=== PATIENT | female | born 1980 | race Caucasian/White ===

== ENCOUNTER 2018-11-15 14:37 | Emergency (ER) | payer BC, SELFPAY ==
[2018-11-15 14:50] VITALS: BP 113/75; PULSE 66; RESP 12; TEMP 36.6; O2SAT 100
[2018-11-15 14:55] VITALS: PULSE 66
--- NOTE | 2018-11-15 15:10 | DI.RAD.S_ITS ---
PROCEDURE: XR ANKLE LT MIN 3V INDICATIONS: Pain to left ankle TECHNIQUE: 3 views of the ankle were acquired. COMPARISON: None. FINDINGS: Bones: No fractures or dislocations. Ankle mortise is normally aligned. No suspicious bony lesions. Soft tissues: No tibiotalar joint effusion. Achilles tendon appears normal. IMPRESSION: No trauma found. If there is clinical concern for presence of hidden fracture follow-up by delayed plain films or advanced imaging, such as CT or MRI, could be obtained. The normal superimposition of multiple osseous margins in this area reduces the study's ability to detect nondisplaced fractures. Dictated by: Wilfredo Terry M.D. on 11/15/2018 at 15:55 Approved by: Wilfredo Terry M.D. on 11/15/2018 at 15:56
--- NOTE | 2018-11-15 16:16 | ED_ITS ---
HPI - Extremity Injury (Lower) <ANYA Nelson - Last Filed: 11/15/18 21:34> General Chief Complaint: Extremity Injury, Lower Stated Complaint: FOOT/ANKLE PAIN LEFT Time Seen by Provider: 11/15/18 14:39 Source: patient Mode of arrival: ambulatory Limitations: no limitations History of Present Illness HPI Narrative: 38-year-old female with history of PTSD that is a everyday smoker here for complaint of pain into her left ankle since yesterday. She states that she was at her work where she stands frequently when the pain started. She denies any trauma to the ankle. She denies stepping wrong. Increased pain with weight-bearing and movement of the left ankle. Pain is limited to the left ankle. She denies any other concerns or complaints at this timeframe. MD complaint: ankle injury Related Data Home Medications Medication Instructions Recorded Confirmed gabapentin 100 mg PO TID 11/15/18 11/15/18 Allergies Allergy/AdvReac Type Severity Reaction Status Date / Time nortriptyline [NORTRIPTYLINE] Allergy Unknown Unverified 01/27/18 12:20 prednisone [PREDNISONE] Allergy Unknown Unverified 01/27/18 12:20 Review of Systems <ANYA Nelson - Last Filed: 11/15/18 21:34> Constitutional Denies chills, Denies fever(s), Denies lethargy and Denies weakness Eyes Denies change in vision, Denies eye discharge, Denies irritation and Denies loss of vision ENT Ears, Nose, Mouth, and Throat: Denies change in voice, Denies neck pain and Denies sore throat Cardiovascular Denies chest pain, Denies irregular heart rhythm, Denies lightheadedness, Denies palpitations, Denies dyspnea, Denies dyspnea on exertion and Denies orthopnea Respiratory Denies cough, Denies dyspnea, Denies dyspnea on exertion and Denies wheezing Gastrointestinal Gastrointestinal: Denies abdominal pain, Denies change in bowel habits, Denies diarrhea, Denies nausea and Denies vomiting Genitourinary Denies hematuria, Denies flank pain, Denies urinary incontinence and Denies urinary urgency Musculoskeletal Denies neck pain Comments: Left ankle pain Integumentary/Breasts Denies pruritus, Denies erythema, Denies rash and Denies wounds Neurologic Denies confusion, Denies loss of vision and Denies weakness Psychiatric Denies anxiety, Denies confusion, Denies depression, Denies homicidal ideation and Denies suicidal ideation Endocrine Denies palpitations Hematologic/Lymphatic Denies easy bruising Allergic/Immunologic Denies wheezing PFSH <ANYA Nelson - Last Filed: 11/15/18 21:34> Social History Smoking Status: Current every day smoker Exam <ANYA eNlson - Last Filed: 11/15/18 21:34> Initial Vital Signs Initial Vital Signs: Vital Signs Temperature 97.8 F 11/15/18 14:50 Pulse Rate 66 11/15/18 14:50 Respiratory Rate 12 11/15/18 14:50 Blood Pressure 113/75 11/15/18 14:50 Pulse Oximetry 100 11/15/18 14:50 Const General: cooperative and well developed Nutritional Appearance: well nourished Orientation: alert, awake, oriented x3 and not confused HENMT Mouth: oral mucosae normal and moist mucous membranes Eyes Conjunctivae: conjunctivae normal Sclera: sclerae normal Pupils: PERRL EOM: EOM intact bilaterally Resp Effort & Inspection: normal respiratory effort, able to speak in complete sentences, no respiratory distress and no use of accessory muscles Auscultation: clear to auscultation bilaterally, no rales, no rhonchi and no wheezes Cardio Rate: regular rate Rhythm: regular rhythm Heart Sounds: no click, no gallops, no murmurs and no rubs Pulses: normal peripheral pulses Skin General: no rashes or lesions noted, No jaundice and No petechiae Neuro General: alert, oriented x3, gait normal and no focal motor deficits Speech: speech normal Extrem Other: Left ankle with no signs of trauma. No ecchymosis no swelling no erythema. Full range of motion. Distal range of motion is intact. Distal sensation is intact distal pulses are intact <Quita Cedeño DO - Last Filed: 11/24/18 16:36> Initial Vital Signs Initial Vital Signs: Vital Signs Temperature 97.8 F 11/15/18 14:50 Pulse Rate 66 11/15/18 14:50 Respiratory Rate 12 11/15/18 14:50 Blood Pressure 113/75 11/15/18 14:50 Pulse Oximetry 100 11/15/18 14:50 Course <ANYA Nelson - Last Filed: 11/15/18 21:34> Orders Ordered: ED Orders 11/15/18 15:10 XR ankle LT min 3V Stat Vital Signs - 8 hr 11/15/18 14:50 11/15/18 14:55 11/15/18 16:30 Temperature 97.8 F Pulse Rate 66 60 Pulse Rate [Left Dorsalis Pedis] 66 Respiratory Rate 12 16 Blood Pressure 113/75 Blood Pressure [Left Arm] 106/62 Pulse Oximetry 100 100 <Quita Cedeño DO - Last Filed: 11/24/18 16:36> Orders Ordered: ED Orders 11/15/18 15:10 XR ankle LT min 3V Stat Vital Signs - 8 hr 11/15/18 14:50 11/15/18 14:55 11/15/18 16:30 Temperature 97.8 F Pulse Rate 66 60 Pulse Rate [Left Dorsalis Pedis] 66 Respiratory Rate 12 16 Blood Pressure 113/75 Blood Pressure [Left Arm] 106/62 Pulse Oximetry 100 100 MDM - Extremity Injury (Lower) <ANYA Nelson - Last Filed: 11/15/18 21:34> MDM Narrative Medical decision making narrative: X-ray the left ankle was obtained was negative for any acute findings. Signs and symptoms presents as sprain to the left ankle. She is placed and a splint and crutches for nonweightbearing. Rest area. [id number] ibuprofen as needed for discomfort. Follow up with primary care provider who re-evaluation. For any worsening symptoms return emergency room. Discharge Plan Departure Patient Disposition: Home Clinical Impression: Left ankle sprain Qualifiers: Encounter type: initial encounter Involved ligament of ankle: unspecified ligament Qualified Code(s): S93.402A - Sprain of unspecified ligament of left ankle, initial encounter Discharge Date/Time: 11/15/18 16:54 Interventions: ED Discharge Assessment Last Done: 11/15/18 16:46 Instructions: DI for Ankle Sprain Activity Restrictions/Additional Instructions: [address] [place] [id number] XRay Report Signed Patient: Angella Villalobos#: [id number] : 1980Acct:[id number] Age/Sex: 38 / FDate of Service: 11/15/18 Loc: ED Accession Number: [id number] Procedure: XR ankle LT min 3V Ordering Provider: Henrry Fam PROCEDURE: XR ANKLE LT MIN 3V INDICATIONS: Pain to left ankle TECHNIQUE: 3 views of the ankle were acquired. COMPARISON: None. FINDINGS: Bones: No fractures or dislocations. Ankle mortise is normally aligned. No suspicious bony lesions. Soft tissues: No tibiotalar joint effusion. Achilles tendon appears normal. IMPRESSION: No trauma found. If there is clinical concern for presence of hidden fracture follow-up by delayed plain films or advanced imaging, such as CT or MRI, could be obtained. The normal superimposition of multiple osseous margins in this area reduces the study's ability to detect nondisplaced fractures. Dictated by: Wilfredo Terry M.D. on 11/15/2018 at 15:55 Approved by: Wilferdo Terry M.D. on 11/15/2018 at 15:56 Prescriptions: No Action gabapentin 100 mg capsule 100 mg PO TID RF: 0 Referrals: [facility] [Provider Group] Stand Alone Forms: Work Release Note <Quita Cedeño DO - Last Filed: 11/24/18 16:36> Cosign ED Attending Cosignature Attestation: I was immediately available in the department for consultation. This documentation has been reviewed and I agree with assessment and plan. Supervised by Quita Cedeño DO
[2018-11-15 16:30] VITALS: BP 106/62; PULSE 60; RESP 16; O2SAT 100
== END 2018-11-15 16:54 | disposition home or self-care (01) ==
PROVIDERS: Emergency Provider Nurse Practitioner Family
DX: S93.402A Sprain of unspecified ligament of left ankle, initial encounter (principal)
CPT/HCPCS: 73610; 99282; 99283

== ENCOUNTER 2018-12-20 16:55 | Emergency (ER) | payer BC, SELFPAY ==
[2018-12-20 17:06] VITALS: BP 130/77; PULSE 95; RESP 18; TEMP 37.9; O2SAT 97; BMI 29.9
--- NOTE | 2018-12-20 18:31 | ED.URI ---
HPI - URI/Sore Throat General Chief Complaint: Upper Respiratory Symptoms Stated Complaint: states has the flu and asthma Time Seen by Provider: 12/20/18 18:25 Source: patient and family Mode of arrival: ambulatory Limitations: no limitations History of Present Illness HPI Narrative: 38-year-old female smoker with history of asthma presents with runny nose, sore throat, headache and dry hacking cough for the past day or 2. Her significant other has similar symptoms. She has had no nausea or vomiting and denies any diarrhea or abdominal pain. She did not get her flu shot this year. MD Complaint: fever, cough and sore throat Onset (ago): day(s) Duration: constant Severity: mild Relieving factors: nothing Exacerbating factors: nothing Description of mucous: clear Able to tolerate fluids by mouth: Yes Context: sick contacts Treatments prior to arrival: acetaminophen and ibuprofen Related Data Home Medications Medication Instructions Recorded Confirmed gabapentin 100 mg PO TID 11/15/18 12/20/18 Previous Rx's Medication Instructions Recorded albuterol sulfate 2 puff INHALATION Q4H PRN #1 each 12/20/18 ondansetron 4 mg PO TID-QID PRN #10 tab 12/20/18 oseltamivir [Tamiflu] 75 mg PO BID 5 Days #10 cap 12/20/18 Allergies Allergy/AdvReac Type Severity Reaction Status Date / Time nortriptyline [NORTRIPTYLINE] Allergy Unknown Verified 12/20/18 17:06 prednisone [PREDNISONE] Allergy Unknown Verified 12/20/18 17:06 Review of Systems Constitutional Reports chills, Reports fever(s), Reports headache(s), Denies lethargy and Denies weakness Eyes Denies change in vision, Denies eye discharge, Denies irritation and Denies loss of vision ENT Ears, Nose, Mouth, and Throat: Denies change in voice, Reports headache(s), Denies neck pain and Reports sore throat Cardiovascular Denies chest pain, Denies irregular heart rhythm, Denies lightheadedness, Denies palpitations, Denies dyspnea, Denies dyspnea on exertion and Denies orthopnea Respiratory Reports cough, Denies dyspnea, Denies dyspnea on exertion and Denies wheezing Gastrointestinal Gastrointestinal: Denies abdominal pain, Denies change in bowel habits, Denies diarrhea, Denies nausea and Denies vomiting Genitourinary Denies hematuria, Denies flank pain, Denies urinary incontinence and Denies urinary urgency Musculoskeletal Denies neck pain Integumentary/Breasts Denies pruritus, Denies erythema, Denies rash and Denies wounds Neurologic Denies confusion, Reports headache(s), Denies loss of vision and Denies weakness Psychiatric Denies anxiety, Denies confusion, Denies depression, Denies homicidal ideation and Denies suicidal ideation Endocrine Denies palpitations Hematologic/Lymphatic Denies easy bruising Allergic/Immunologic Denies wheezing PFSH Social History Smoking Status: Current every day smoker Social History Smoking Status: Current every day smoker Exam Narrative Exam Narrative: GENERAL: 38-year-old female appears stated age, clearly not feeling well, wearing a mask HEAD: Atraumatic. Normocephalic. No temporal or scalp tenderness. EYES: Pupils equal round and reactive. Extraocular motions intact. No scleral icterus. No injection or drainage. ENT: Nose without bleeding, purulent drainage or septal hematoma. Throat without erythema, tonsillar hypertrophy or exudate. Uvula midline. Airway patent. NECK: Trachea midline. No JVD or lymphadenopathy. Supple, nontender, no meningeal signs. CARDIOVASCULAR: Regular rate and rhythm without murmurs, gallops, or rubs. RESPIRATORY: Clear to auscultation. Breath sounds equal bilaterally. No wheezes, rales, or rhonchi. GASTROINTESTINAL: Abdomen soft, non-tender, nondistended. No hepato-splenomegaly, or palpable masses. No guarding. EXTREMITIES: No clubbing, cyanosis, or edema. No joint tenderness, effusion, or edema noted. BACK: Nontender without deformity or crepitance. No flank tenderness. NEURO: AOx3. SKIN: No rash or erythema. Initial Vital Signs Initial Vital Signs: Vital Signs Temperature 100.3 F H 12/20/18 17:06 Pulse Rate 95 H 12/20/18 17:06 Respiratory Rate 18 12/20/18 17:06 Blood Pressure 130/77 12/20/18 17:06 Pulse Oximetry 97 12/20/18 17:06 Course Orders Ordered: ED Orders 12/20/18 17:10 Influenza A and B by PCR Rapid Stat Vital Signs - 8 hr 12/20/18 18:45 Pulse Rate 77 Respiratory Rate 15 Blood Pressure 133/67 Pulse Oximetry 100 MDM - URI/Sore Throat Lab Data Lab Results 12/20/18 Range/Units 17:10 Influenza A & B (PCR) Positive, type a A (Negative) Discharge Plan Departure Patient Disposition: Home Clinical Impression: Influenza Discharge Date/Time: 12/20/18 18:46 Interventions: ED Discharge Assessment Last Done: 12/20/18 18:45 Instructions: DI for Influenza -- Adult Activity Restrictions/Additional Instructions: *You have been diagnosed with [ influenza ] *What to do: *Take medications as directed. Prescriptions have been electronically transmitted to the [facility] at your request *Follow up with your primary care provider in 2-3 days, call for an appointment. Let them know you were seen in the Emergency Department and that we ask that you be seen in follow up *Return to ER if you should have any new, worsening or concerning symptoms Prescriptions: New oseltamivir [Tamiflu] 75 mg capsule 75 mg PO BID 5 Days Qty: 10 RF: 0 ondansetron 4 mg tablet,disintegrating 4 mg PO TID-QID PRN (Reason: nausea and vomiting) Qty: 10 RF: 0 albuterol sulfate 90 mcg/actuation aerosol powdr breath activated 2 puff INHALATION Q4H PRN (Reason: shortness of breath or wheezing) Qty: 1 RF: 0 No Action gabapentin 100 mg capsule 100 mg PO TID RF: 0
[2018-12-20 18:45] VITALS: BP 133/67; PULSE 77; RESP 15; O2SAT 100
== END 2018-12-20 18:46 | disposition home or self-care (01) ==
PROVIDERS: Emergency Medicine; Emergency Provider Emergency Medicine
DX: J11.1 Influenza due to unidentified influenza virus with other respiratory manifestations (principal)
CPT/HCPCS: 87400; 99282; 99283

== ENCOUNTER 2019-01-19 20:40 | Emergency (ER) | payer BC, SELFPAY ==
[2019-01-19 20:44] VITALS: BP 118/66; PULSE 89; RESP 16; TEMP 37.1; O2SAT 99; BMI 32.0
--- NOTE | 2019-01-19 21:55 | DI.RAD.S_ITS ---
PROCEDURE: XR HIP W PEL IF DONE LT 2V INDICATIONS: fall with left hip pain TECHNIQUE: AP pelvis with lateral view(s) of the left hip(s). COMPARISON: None. FINDINGS: Bones: No fractures or dislocations. Pelvic ring appears intact. No suspicious bony lesions. Soft tissues: The visualized bowel gas pattern is normal. No suspicious soft tissue calcifications. IMPRESSION: No fracture or dislocation. No significant discrepancy with the ER preliminary interpretation. Dictated by: Melodie Damian M.D. on 01/20/2019 at 8:33 Approved by: Melodie Damian M.D. on 01/20/2019 at 8:33
[2019-01-19] MEDS: KETOROLAC 60 MG/2 ML VIAL IM (22:10)
[2019-01-19] MEDS: HYDROCODONE/ACET 5/325 PREPACK 1 BOTTLE MISC (22:57)
[2019-01-19 23:22] VITALS: BP 97/65; PULSE 70; RESP 14; O2SAT 100
--- NOTE | 2019-01-20 04:17 | ED_ITS ---
HPI - Extremity Injury (Lower) General Chief Complaint: Extremity Injury, Lower Stated Complaint: LT SIDE HIP TO FOOT PAIN Time Seen by Provider: 01/19/19 20:41 Source: patient and family Mode of arrival: ambulatory Limitations: no limitations History of Present Illness HPI Narrative: 38-year-old female daily smoker with history of asthma and chronic back pain presents with a chief complaint of left hip pain and low back pain that radiates down her leg. She suffered a fall few weeks ago and states that her pain just isn't improving. She denies any numbness, tingling or weakness. She denies any trouble controlling bowel or bladder. She denies any weakness of her lower extremities nor any footdrop. She does have a history of low back pain and states that on occasion she will take some gabapentin that had been prescribed to her but that does not seem to be helping current symptoms MD complaint: hip injury and fall Onset (ago): day(s) Type of Injury: blunt Place: home Severity: mild Relieving factors: nothing Exacerbating factors: weight bearing and movement Context: fall and direct blow Associated symptoms: tingling and able to partially bear weight Related Data Home Medications Medication Instructions Recorded Confirmed gabapentin 100 mg PO TID 11/15/18 12/20/18 Previous Rx's Medication Instructions Recorded albuterol sulfate 2 puff INHALATION Q4H PRN #1 each 12/20/18 ondansetron 4 mg PO TID-QID PRN #10 tab 12/20/18 cyclobenzaprine 10 mg PO TID PRN #14 tab 01/19/19 ketorolac 10 mg PO Q6H PRN #14 tab 01/19/19 Allergies Allergy/AdvReac Type Severity Reaction Status Date / Time nortriptyline [NORTRIPTYLINE] Allergy Unknown Verified 01/19/19 20:44 prednisone [PREDNISONE] Allergy Unknown Verified 01/19/19 20:44 Review of Systems Constitutional Denies chills, Denies fever(s), Denies lethargy and Denies weakness Eyes Denies change in vision, Denies eye discharge, Denies irritation and Denies loss of vision ENT Ears, Nose, Mouth, and Throat: Denies change in voice, Denies neck pain and Denies sore throat Cardiovascular Denies chest pain, Denies irregular heart rhythm, Denies lightheadedness, Denies palpitations, Denies dyspnea, Denies dyspnea on exertion and Denies orthopnea Respiratory Denies cough, Denies dyspnea, Denies dyspnea on exertion and Denies wheezing Gastrointestinal Gastrointestinal: Denies abdominal pain, Denies change in bowel habits, Denies diarrhea, Denies nausea and Denies vomiting Genitourinary Denies hematuria, Denies flank pain, Denies urinary incontinence and Denies urinary urgency Musculoskeletal Reports back pain and Denies neck pain Integumentary/Breasts Denies pruritus, Denies erythema, Denies rash and Denies wounds Neurologic Denies confusion, Denies loss of vision and Denies weakness Psychiatric Denies anxiety, Denies confusion, Denies depression, Denies homicidal ideation and Denies suicidal ideation Endocrine Denies palpitations Hematologic/Lymphatic Denies easy bruising Allergic/Immunologic Denies wheezing [facility] Social History Smoking Status: Current every day smoker Social History Smoking Status: Current every day smoker Exam Narrative Exam Narrative: GEN: AOx3 and in mild distress, clearly uncomfortable EYES: Pupils are equal, round, and reactive to light and accommodation. Extraoccular muscles are intact bilaterally. There is no subconjunctival hemorrhage or exudate. CHEST: Lungs are clear to auscultation bilaterally and free of wheezes, rales, or rhonchi. Heart rate is regular rhythm, there are no murmurs, clicks, rubs, or gallops. There is no chest wall tenderness. ABD: Abdomen is soft and nontender. There is no guarding or rebound. Bowel sounds are normal in all 4 quadrants. There is no mass or organomegaly. EXT: Full painless ROM of all extremities with no loss of sensation or strength. SKIN: Warm, pink, and dry. No erythema or rash BACK: typesetting machine tender but free of any obvious external abnormalities. Patient exam notes decreased range of motion and muscle spasm, but no CVA tenderness, or vertebral point tenderness. There are no symptoms of cauda equina such as saddle anesthesia, and decreased reflexes, decreased sensation or strength. Initial Vital Signs Initial Vital Signs: Vital Signs Temperature 98.7 F 01/19/19 20:44 Pulse Rate 89 01/19/19 20:44 Respiratory Rate 16 01/19/19 20:44 Blood Pressure 118/66 01/19/19 20:44 Pulse Oximetry 99 01/19/19 20:44 Course Orders Ordered: ED Orders 01/19/19 21:55 XR hip w pel if done LT 2V Stat Discontinued Medications Hydrocodone Bitart/Acetaminophen (Vicodin Prepack) 1 bottle MISC SEEINSTR ONE Stop: 01/19/19 22:57 Last Admin: 01/19/19 22:57 Dose: 1 bottle Ketorolac Tromethamine (Toradol) 60 mg IM NOW ONE Stop: 01/19/19 21:56 Last Admin: 01/19/19 22:10 Dose: 60 mg Reevaluation(s) Reevaluation #1: patient feeling some improvement after above stated therapies Vital Signs - 8 hr 01/19/19 20:44 01/19/19 23:22 Temperature 98.7 F Pulse Rate 89 70 Respiratory Rate 16 14 Blood Pressure 118/66 97/65 Pulse Oximetry 99 100 MDM - Extremity Injury (Lower) MDM Narrative Medical decision making narrative: Multiple etiologies for patient's symptoms considered including: [Cauda equina considered but thought less likely given lack of classic findings, hip or pelvic fracture considered but thought less likely given lack of x-ray findings, hip contusion or lumbar spasm thought most likely] Patient's symptoms improved or duration of stay with above-stated therapies. Findings and discharge diagnosis discussed with patient/family followed by verbalization of understanding Return precautions discussed with patient/family whom verbalize understanding. Discharge Plan Departure Patient Disposition: Home Clinical Impression: Acute left lumbar radiculopathy Acute hip pain Qualifiers: Laterality: left Qualified Code(s): M25.552 - Pain in left hip Discharge Date/Time: 01/19/19 23:22 Interventions: ED Discharge Assessment Last Done: 01/19/19 23:22 Instructions: DI for Lumbar Radiculopathy Activity Restrictions/Additional Instructions: *You have been diagnosed with [acute hip pain with lumbar radiculopathy ] *What to do: *Take medications as directed: *Follow up with your primary care provider in 2-3 days, call for an appointment. Let them know you were seen in the Emergency Department and that we ask that you be seen in follow up *Return to ER if you should have any new, worsening or concerning symptoms] Prescriptions: New cyclobenzaprine 10 mg tablet 10 mg PO TID PRN (Reason: muscle spasm) Qty: 14 RF: 0 ketorolac 10 mg tablet 10 mg PO Q6H PRN (Reason: pain) Qty: 14 RF: 0 No Action gabapentin 100 mg capsule 100 mg PO TID RF: 0 ondansetron 4 mg tablet,disintegrating 4 mg PO TID-QID PRN (Reason: nausea and vomiting) Qty: 10 RF: 0 albuterol sulfate 90 mcg/actuation aerosol powdr breath activated 2 puff INHALATION Q4H PRN (Reason: shortness of breath or wheezing) Qty: 1 RF: 0
== END 2019-01-19 23:22 | disposition home or self-care (01) ==
PROVIDERS: Emergency Provider Emergency Medicine
DX: M54.16 Radiculopathy, lumbar region (principal); M25.559 Pain in unspecified hip
CPT/HCPCS: 73502; 96372; 99282; 99283; J1885

== ENCOUNTER → 2020-01-08 12:54 | Outpatient (CLI) | payer BC, SELFPAY ==
[2020-01-08 17:19] LABS: Influenza A - CEPHEID Flu A NEGATIVE (NEGATIVE); Influenza B - CEPHEID Flu B NEGATIVE (NEGATIVE)
[2020-01-11 04:22] LABS: COVID19 Sendout Not Detected (Not Detected)
== END ==
PROVIDERS: Visit Provider Physician Assistant
DX: R06.02 Shortness of breath (principal); R50.9 Fever, unspecified; Z87.09 Personal history of other diseases of the respiratory system
CPT/HCPCS: 87070; 87502; 87635

== ENCOUNTER 2020-11-29 21:49 | Emergency (ER) | payer BC, SELFPAY ==
[2020-11-29] VITALS (7 sets, daily range): BP systolic 91–123; BP diastolic 51–65; PULSE 67–88; RESP 13–23; TEMP 37; O2SAT 97–99; BMI 66.0
--- NOTE | 2020-11-29 22:41 | ED.ABDPAIN ---
HPI - Abdominal Pain General Chief Complaint: Abdominal Pain Stated Complaint: upper right side pain moving to back Time Seen by Provider: 11/29/20 22:12 Source: patient Mode of arrival: Ambulatory Limitations: no limitations History of Present Illness HPI narrative: Patient is a 40-year-old female who presents with right upper quadrant pain. She has a history of cholecystectomy and pancreatitis. She says it has been ongoing for the last 4 days she actually thought it was her pancreatitis she typically treats that with changing her diet to to contain rice only which usually helps. But he says it did not help this time. She denies any alcohol use they thought pancreatitis was from her gallbladder. Tonight she says that the pain starts in her epigastric area and radiates all way through to her right back. She has not had vomiting occasional nausea. She denies any fever or chest. MD complaint: abdominal pain Onset (ago): day(s) (4) Pain Consistency: intermittent Location: RUQ and epigastric Severity: moderate Quality: sharp Radiation: back Relieving factors: nothing Exacerbating factors: nothing Related Data Home Medications Medication Instructions Recorded Confirmed gabapentin 100 mg PO TID 11/15/18 12/20/18 Previous Rx's Medication Instructions Recorded albuterol sulfate 2 puff INHALATION Q4H PRN #1 each 12/20/18 ondansetron 4 mg PO TID-QID PRN #10 tab 12/20/18 cyclobenzaprine 10 mg PO TID PRN #14 tab 01/19/19 ketorolac 10 mg PO Q6H PRN #14 tab 01/19/19 mometasone 200 mcg/actuation HFA 1 puff INHALATION BID #13 gram 01/10/20 aerosol inhaler ondansetron 4 mg PO Q8H PRN #10 tab 11/30/20 Allergies Allergy/AdvReac Type Severity Reaction Status Date / Time nortriptyline [NORTRIPTYLINE] Allergy Unknown Verified 01/19/19 20:44 prednisone [PREDNISONE] Allergy Unknown Verified 01/19/19 20:44 Review of Systems Review of Systems Narrative: GENERAL: Denies chills, fatigue, malaise, fever, sweats, travel HEENT: Denies sinus pain, ear pain, sore throat, difficulty swallowing, neck pain RESPIRATORY: Denies dyspnea, cough, wheezing, hemoptysis, sputum. CARDIOVASCULAR: Denies chest pain, palpitations, orthopnea, edema GASTROINTESTINAL: See HPI : Denies dysuria, frequency, incontinence, hematuria, urinary retention, flank pain. MUSCULOSKELETAL: Denies weakness, joint pain, or bony pain SKIN: No rash, no erythema, no pruritus NEUROLOGIC: Denies weakness, dizziness, headache, numbness, change in speech, confusion PSYCHIATRIC: No concerning psychosocial issues. 12 point review of systems is negative except for those stated above and HPI Patient History Medical History Pancreatitis Surgical History Status post cholecystectomy Status post hysterectomy Social History Smoking Status: Current every day smoker Smoking Status: Current every day smoker alcohol intake frequency: 0-2 drinks per day Substance Use Type: marijuana Exam Initial Vital Signs Initial Vital Signs: Vital Signs Blood Pressure 123/65 11/29/20 21:56 GENERAL: Well-appearing, well-nourished and in no acute distress. HEENT: Head atraumatic,EOMI, pupils reactive, face symmetric, moist mucous membranes CARDIOVASCULAR: Regular rate and rhythm without murmurs, rubs or gallops. RESPIRATORY: Breath sounds equal bilaterally, no wheezes rales or rhonchi. ABDOMEN: Soft, tender right upper quadrant no guarding or rebound EXTREMITIES: Normal range of motion, no clubbing or edema. Neurovascularly intact NEUROLOGICAL: Alert and oriented x4.Normal gait and speech. Cranial nerves II through XII grossly intact. SKIN: Warm, dry, no laceration, no petechiae, no rashes or lesions. Course Orders Ordered: ED Orders 11/29/20 22:49 CT abdomen pelvis w con Stat 11/29/20 22:50 EKG-12 Lead Stat 11/29/20 23:10 Complete Blood Count AUTO DIFF Stat Comprehensive Metabolic Panel Stat Lipase Stat Discontinued Medications Ketorolac Tromethamine (Ketorolac 60 Mg/2 Ml Vial) 30 mg IV NOW ONE Stop: 11/29/20 23:53 Last Admin: 11/29/20 23:55 Dose: 30 mg Documented by: HEBER Ondansetron HCl (Ondansetron 4 Mg Odt Prepack) 1 bottle [facility] SEEINSTR ONE Stop: 11/30/20 00:45 Last Admin: 11/30/20 01:00 Dose: 1 bottle Documented by: HEBER Vital Signs Vital signs: Vital Signs - 8 hr 11/29/20 21:56 11/29/20 21:57 11/29/20 21:58 Temperature 98.6 F Pulse Rate 84 88 Respiratory Rate 16 Blood Pressure 123/65 123/65 Pulse Oximetry 98 97 11/29/20 22:52 11/29/20 23:00 11/29/20 23:19 Temperature Pulse Rate 84 72 72 Respiratory Rate 13 17 22 Blood Pressure 104/53 L Pulse Oximetry 99 98 99 11/29/20 23:30 11/30/20 00:00 11/30/20 00:30 Temperature Pulse Rate 67 78 65 Respiratory Rate 23 27 H 21 Blood Pressure 91/51 L Pulse Oximetry 98 98 96 11/30/20 00:54 Temperature Pulse Rate 75 Respiratory Rate 20 Blood Pressure 102/56 L Pulse Oximetry 97 MDM - Abdominal Pain Lab Data Attestation: I reviewed the patient's lab results. Result diagrams: 11/29/20 23:10 11/29/20 23:10 Labs: Lab Results 11/29/20 11/29/20 Range/Units 23:10 23:10 WBC 13.7 H (4.5-11.0) X10^3/uL RBC 4.37 (4.0-5.2) X10^6/uL Hgb 13.1 (12.0-16.0) g/dL Hct 40.2 (36-46) % MCV 91.9 (80-100) fL MCH 30.0 (26-34) PG MCHC 32.7 (30-36) % RDW 12.7 (11.6-14.8) % Plt Count 401 H (150-400) X10^3/uL Neut % (Auto) 62.1 (50-75) % Lymph % (Auto) 28.6 (25-40) % [place] % (Auto) 5.5 (3-14) % Eos % (Auto) 3.0 (2-4) % Baso % (Auto) 0.8 (0-2) % Neut # (Auto) 8500 H (9782-5048) /uL Lymph # (Auto) 3900 (7981-1909) /uL [place] # (Auto) 800 (0-900) /uL Eos # (Auto) 400 (0-450) /uL Baso # (Auto) 100 (0-100) /uL Sodium 137 (137-145) mmol/L Potassium 3.4 (3.4-5.1) mmol/L Chloride 109 H (98-107) mmol/L Carbon Dioxide 29 (22-32) mmol/L BUN 10 (7-17) mg/dL Creatinine 0.58 (0.52-1.04) mg/dL Estimated GFR > 60.0 (>60) mL/min BUN/Creatinine Ratio 17.2 (6-22) Glucose 139 H (70-100) mg/dL Calcium 8.9 (8.4-10.2) mg/dL Total Bilirubin 0.1 L (0.2-1.3) mg/dL AST 19 (14-36) IU/L ALT 17 (<35) IU/L Alkaline Phosphatase 59 (38-126) U/L Total Protein 6.2 L (6.3-8.2) g/dL Albumin 3.6 (3.5-5.0) g/dL Globulin 2.6 (1.7-4.1) g/dL Albumin/Globulin Ratio 1.4 (1.0-2.8) Lipase 429 H (23-300) U/L Point of care testing: Urine Dip Bedside Urine Glucose Negative Bedside Urine Bilirubin - Negative Bedside Urine Ketone - Negative Urine Specific [place] 1.030 Bedside Urine Occult Blood - Negative Bedside Urine pH 6.0 Bedside Urine Protein - Negative Bedside Urine Urobilinogen - Negative Bedside Urine Nitrite - Negative Bedside Urine Leukocytes - Negative Esterase Imaging Data CT scan - abdomen/pelvis: Radiologist's Impression: Preliminary finding no acute findings, no pancreatitis ECG Data Attestation: I personally reviewed and interpreted this ECG as follows: Prior ECG tracings: not available for review Interpretation: Normal sinus rhythm rate 69 p.r. interval 180 QRS [address] changes or T-wave inversions MDM Narrative Medical decision making narrative: Patient blood work CT scan are overall reassuring. She is given Toradol for discomfort. Zofran has seem to help her nausea. She does not seem to be to dehydrated and has not vomited in the ED. Discharge Plan Departure Patient Disposition: Home Clinical Impression: Abdominal pain Qualifiers: Abdominal location: right upper quadrant Qualified Code(s): R10.11 - Right upper quadrant pain Instructions: DI for Abdominal Pain-Adult Activity Restrictions/Additional Instructions: *You have been diagnosed with abdominal pain *What to do: Increased fluid and diet as tolerated. *Continue to take medications as directed Zofran 4 mg every 8 hours if needed for nausea or vomiting--> SENT TO [facility] IN [place] *Follow up with your primary care provider in 2-3 days *Return to ER if you should have persistent vomiting increasing pain or any new, worsening or concerning symptoms Prescriptions: New ondansetron 4 mg tablet,disintegrating 4 mg PO Q8H PRN (Reason: nausea and vomiting) Qty: 10 RF: 0 No Action Asmanex HFA 200 mcg/actuation HFA aerosol inhaler 1 puff INHALATION BID Qty: 13 RF: 0 gabapentin 100 mg capsule 100 mg PO TID RF: 0 ondansetron 4 mg tablet,disintegrating 4 mg PO TID-QID PRN (Reason: nausea and vomiting) Qty: 10 RF: 0 albuterol sulfate 90 mcg/actuation aerosol powdr breath activated 2 puff INHALATION Q4H PRN (Reason: shortness of breath or wheezing) Qty: 1 RF: 0 cyclobenzaprine 10 mg tablet 10 mg PO TID PRN (Reason: muscle spasm) Qty: 14 RF: 0 ketorolac 10 mg tablet 10 mg PO Q6H PRN (Reason: pain) Qty: 14 RF: 0
--- NOTE | 2020-11-29 22:49 | DI.CT.S_ITS ---
PROCEDURE: CT ABDOMEN PELVIS W CON INDICATIONS: abdominal pain, history of cholecystitis and pancreatitis TECHNIQUE: After the administration of intravenous contrast, 5 mm thick sections acquired from the diaphragm to the symphysis. 5 mm coronal and sagittal reformats were acquired. For radiation dose reduction, the following was used: automated exposure control, adjustment of mA and/or kV according to patient size. COMPARISON: None. FINDINGS: Image quality: Excellent. ABDOMEN: Lung bases: Lung bases are clear. Heart size is normal. Solid organs: Liver is normal in size and enhancement. Gallbladder is absent. Biliary system is non dilated. Pancreas enhances normally. Spleen is normal in size and enhancement. No adrenal nodules. Kidneys demonstrate normal size and enhancement, without hydronephrosis. 1.5 centimeter left renal cyst. Peritoneum and bowel: Bowel loops demonstrate normal wall thickness and caliber. No free fluid or air. The appendix is normal. Nodes and vessels: No retroperitoneal or mesenteric adenopathy by size criteria. Aorta and inferior vena cava are normal in size. Miscellaneous: No ventral hernias. PELVIS: Genitourinary: Bladder wall thickness is normal. Miscellaneous: No inguinal hernias or adenopathy. Bones: No suspicious bony lesions. No vertebral body compression fractures. IMPRESSION: 1. No acute disease process. 2. No free fluid or free air. 3. No dilated loops of bowel. 4. No evidence of recurrent pancreatitis. Dictated by: Ewa Lobo MD, PhD on 11/30/2020 at 7:47 Approved by: Ewa Lobo MD, PhD on 11/30/2020 at 7:52
[2020-11-29 23:21] LABS: Add Manual Diff / Slide Review NO; Basophils Absolute Auto 100 /uL (0-100); Basophils Percent Auto 0.8 % (0-2); Eosinophils Absolute Auto 400 /uL (0-450); Hematocrit 40.2 % (36-46); Hemoglobin 13.1 g/dL (12.0-16.0); Lymphocytes Absolute Auto 3900 /uL (1100-4500); Lymphocytes Percent Auto 28.6 % (25-40); Mean Corpuscular HGB Conc 32.7 % (30-36); Mean Corpuscular Volume 91.9 fL (80-100); Monocytes Absolute Auto 800 /uL (0-900); Monocytes Percent Auto 5.5 % (3-14); Neutrophils Absolute Auto 8500 /uL (1500-7000); Neutrophils Percent Auto 62.1 % (50-75); Platelet Count 401 X10^3/uL (150-400); Red Blood Cell Count 4.37 X10^6/uL (4.0-5.2); Red Cell Distribution Width 12.7 % (11.6-14.8); White Blood Cell Count 13.7 X10^3/uL (4.5-11.0)
[2020-11-29 23:28] LABS: Alanine Aminotransferase 17 IU/L (<35); Albumin 3.6 g/dL (3.5-5.0); Albumin Globulin Ratio 1.4 (1.0-2.8); Alkaline Phosphatase 59 U/L (38-126); Aspartate Aminotransferase 19 IU/L (14-36); BUN Creatinine Ratio 17.2 (6-22); Bilirubin Total 0.1 mg/dL (0.2-1.3); Blood Urea Nitrogen 10 mg/dL (7-17); Calcium 8.9 mg/dL (8.4-10.2); Carbon Dioxide 29 mmol/L (22-32); Chloride 109 mmol/L (98-107); Estimated Glomerular Filt Rate > 60.0 mL/min (>60); Globulin 2.6 g/dL (1.7-4.1); Glucose 139 mg/dL (70-100); HEMOLYSIS < 15 (0-50); Lipase 429 U/L (23-300); Potassium 3.4 mmol/L (3.4-5.1); Sodium 137 mmol/L (137-145); Total Protein 6.2 g/dL (6.3-8.2)
[2020-11-29] MEDS: KETOROLAC 60 MG/2 ML VIAL 30 MG IV (23:55)
[2020-11-30] VITALS: PULSE 78; RESP 27; O2SAT 98
[2020-11-30 00:30] VITALS: PULSE 65; RESP 21; O2SAT 96
[2020-11-30 00:54] VITALS: BP 102/56; PULSE 75; RESP 20; O2SAT 97
[2020-11-30] MEDS: ONDANSETRON 4 MG ODT PREPACK 1 BOTTLE MISC (01:00)
== END 2020-11-30 01:06 | disposition home or self-care (01) ==
PROVIDERS: Emergency Provider Emergency Medicine
DX: R10.11 Right upper quadrant pain (principal); R11.0 Nausea; Z87.19 Personal history of other diseases of the digestive system
CPT/HCPCS: 36415; 74177; 80053; 81003; 83690; 85025; 93005; 93010; 96374; 99284; J1885; Q9967

== ENCOUNTER 2022-01-25 00:55 | Emergency (ER) | payer OTHER, MEDICAID, SELFPAY ==
--- NOTE | 2022-01-25 01:06 | ED.CHESTPAIN ---
HPI - Chest Pain General Chief Complaint: Chest Pain Stated Complaint: left chest/left arm sharp pains today Time Seen by Provider: 01/25/22 01:01 Source: patient, RN notes reviewed and old records reviewed Mode of arrival: Ambulatory Limitations: no limitations Limitations: no limitations History of Present Illness HPI narrative: This is a 41-year-old female comes in with complaint of left-sided chest pain. Patient states she was being bear hug earlier today. Initially she felt sort of pop feeling almost felt better and started feel dull and increasingly painful as the day progressed to assure pain. Pleuritic with deep inhalation. No fevers, cough cold chilled. Worse with movement of her arm or chest. Patient has not appreciate any bruising or skin changes otherwise. She has not had similar issues. She denies any past medical history or daily medications. She has had tonsillectomy, cholecystectomy, hysterectomy with bilateral oophorectomy. She is or to prednisone, Carafate and nortriptyline. She smokes happen impact the tobacco daily, 1-2 alcoholic drinks yearly, THC but no other illicit. No primary care. She is accompanied by friend at bedside. Related Data Home Medications Medication Instructions Recorded Confirmed gabapentin 100 mg capsule 100 mg PO TID 11/15/18 12/20/18 Previous Rx's Medication Instructions Recorded albuterol sulfate 90 mcg/actuation 2 puff INHALATION Q4H PRN #1 each 12/20/18 breath activated powder inhaler ondansetron 4 mg disintegrating 4 mg PO TID-QID PRN #10 tab 12/20/18 tablet cyclobenzaprine 10 mg tablet 10 mg PO TID PRN #14 tab 01/19/19 ketorolac 10 mg tablet 10 mg PO Q6H PRN #14 tab 01/19/19 mometasone 200 mcg/actuation HFA 1 puff INHALATION BID #13 gram 01/10/20 aerosol inhaler (Asmanex HFA) ondansetron 4 mg disintegrating 4 mg PO Q8H PRN #10 tab 11/30/20 tablet oxycodone-acetaminophen 5 mg-325 1 tab PO Q6H PRN #10 tab 01/25/22 mg tablet (Percocet) Allergies Allergy/AdvReac Type Severity Reaction Status Date / Time nortriptyline [NORTRIPTYLINE] Allergy Unknown Verified 01/19/19 20:44 prednisone [PREDNISONE] Allergy Unknown Verified 01/19/19 20:44 Review of Systems Review of Systems ROS Unobtainable: All systems reviewed & are unremarkable except as noted in HPI and below Patient History Medical History Pancreatitis Surgical History Status post cholecystectomy Status post hysterectomy Social History Smoking Status: Current every day smoker Smoking Status: Current every day smoker alcohol intake frequency: 0-2 drinks per day Substance Use Type: marijuana Exam Narrative Exam Narrative: GENERAL: Alert and oriented x three, female in moderate distress. HEENT: Head normocephalic, atraumatic, EOMI, pupils reactive, face symmetric, moist mucous membranes NECK: Supple, full range of motion CARDIOVASCULAR: Regular rate and rhythm without murmurs, rubs or gallops. RESPIRATORY: Breath sounds equal bilaterally, no wheezes rales or rhonchi. Patient has reproducible chest pain on the lateral angle of particularly posterior rib C4-5. No crepitus, no subcutaneous emphysema. No flail chest. Patient has equal movement bilaterally. No ecchymosis or skin changes. No rash or other skin changes noted. ABDOMEN: Soft, nontender. Normoactive bowel sounds all 4 quadrants. No guarding or rebound, rigidity, no mass : No CVA tenderness BACK: No cervical, thoracic or lumbar vertebral point tenderness. Patient has normal range of motion.. Muscle strength is 5/5 in upper and lower extremities. EXTREMITIES: Normal range of motion, no clubbing or edema. Neurovascularly intact NEUROLOGICAL: Cranial nerves II through XII grossly intact. Moving all extremities SKIN: Warm, dry, no petechiae, no rashes or lesions. Initial Vital Signs Initial Vital Signs: Vital Signs Temperature 98.0 F 01/25/22 01:08 Pulse Rate 92 H 01/25/22 01:08 Respiratory Rate 17 01/25/22 01:08 Blood Pressure 120/63 01/25/22 01:08 Pulse Oximetry 98 01/25/22 01:08 Course Orders Ordered: ED Orders 01/25/22 EKG-12 Lead Routine 01/25/22 01:17 XR ribs LT min 3V w CXR1V Stat Discontinued Medications Ketorolac Tromethamine (Ketorolac 30 Mg/Ml Vial) 30 mg IM NOW ONE Stop: 01/25/22 01:18 Last Admin: 01/25/22 01:34 Dose: 30 mg Documented by: RUFINO Oxycodone/Acetaminophen (Oxycodone/Apap 5/325 Prepack) 1 bottle [facility] SEEINSTR ONE Stop: 01/25/22 02:20 Last Admin: 01/25/22 02:28 Dose: 1 bottle Documented by: CECILE Reevaluation(s) Reevaluation #1: Patient is feeling minimal improvement. She gets sick with norco/vicodin. She does tolerate percocet. Reviewed rib fractures. Time: :22 Vital Signs Vital signs: Vital Signs - 8 hr 01/25/22 01:08 01/25/22 02:37 Temperature 98.0 F Pulse Rate 92 H 78 Respiratory Rate 17 18 Blood Pressure 120/63 106/60 Pulse Oximetry 98 98 MDM - Chest Pain Imaging Data Chest x-ray: Radiologist's Impression: Launch?[place] [address] XRay Report Signed Patient: Lisa Roberts MR#: [id number] : 1980 Acct:[id number] Age/Sex: 41 / F Date of Service: 01/25/22 Loc: Accession Number: [id number] ?? Procedure: XR ribs LT min 3V w CXR1V Ordering Provider: Quita Cedeño D.O. PROCEDURE:? XR RIBS LT MIN 3V W CXR1V ? INDICATIONS:? left rib/chest pain ? TECHNIQUE:? Two views of the left ribs were acquired, along with a single view chest.? ? COMPARISON:? None. ? FINDINGS:? ? Surgical changes and devices:? None.? ? Bones and chest wall:? No displaced rib fracture identified.? No suspicious bony lesions. ?Overlying soft tissues appear unremarkable.? ? Lungs and pleura:? No pleural effusions or pneumothorax.? Lungs appear clear.? ? Mediastinum:? Mediastinal contours appear normal.? Heart size is normal.? ? IMPRESSION:? ? 1. No displaced rib fracture identified. ? ? Dictated by: Brennan Russ M.D. on 01/25/2022 at 2:10 ? ? Approved by: Brennan Russ M.D. on 01/25/2022 at 2:11?? ECG Data Attestation: I personally reviewed and interpreted this ECG as follows: Prior ECG tracings: available for review Interpretation: Sinus rhythm, rate of 90, W[place] 170, QRS is 76 and QTC 452. No acute ST elevation or depression appreciated. Patient has prior from 11/29/2020 with no acute change. MDM Narrative Medical decision making narrative: This is a 41-year-old female with complaint of left chest pain after a large bear hug the sort out dull but became increasingly painful. She did feel a pop initially and after several hours was 2 painful. Patient has not taken anything for pain. Rib x-ray is negative, no changes to the lungs. EKG does not show acute changes. Patient has reproducible chest pain consistent with musculoskeletal injury. Toradol was minimally helpful. She is most comfortable without movement. Plan for pain control, follow up as needed. Discussed with patient return precautions she expresses her understanding. Discharge Plan Departure Patient Disposition: Home Clinical Impression: Acute left-sided thoracic back pain Instructions: DI for Rib Fracture Activity Restrictions/Additional Instructions: Follow-up if your not having improvement of your symptoms in the next 1-2 weeks. You may take ibuprofen up to 800 mg every 8 hours as needed for pain. If in adequate you may take Tylenol up to a 1000 mg every 6 hours as needed. You can take [place] 1 tablet every 6 hours instead of Tylenol but not at the same time. Your maximum amount of Tylenol/acetaminophen is 4000 mg in 24 hours. Prescription sent to [facility]. Please return for new or worsening chest pain, passing out, shortness of breath, persistent vomiting, loss of bowel or bladder control, new weakness numbness or other new or concerning symptoms. Prescriptions: New oxycodone-acetaminophen [Percocet] 5-325 mg tablet 1 tab PO Q6H PRN (Reason: pain) Qty: 10 0RF No Action Asmanex HFA 200 mcg/actuation HFA aerosol inhaler 1 puff INHALATION BID Qty: 13 0RF gabapentin 100 mg capsule 100 mg PO TID 0RF Label Comments: TK ONE C PO TID ondansetron 4 mg tablet,disintegrating 4 mg PO Q8H PRN (Reason: nausea and vomiting) Qty: 10 0RF ondansetron 4 mg tablet,disintegrating 4 mg PO TID-QID PRN (Reason: nausea and vomiting) Qty: 10 0RF albuterol sulfate 90 mcg/actuation aerosol powdr breath activated 2 puff INHALATION Q4H PRN (Reason: shortness of breath or wheezing) Qty: 1 0RF Rx Instructions: administer with spacer cyclobenzaprine 10 mg tablet 10 mg PO TID PRN (Reason: muscle spasm) Qty: 14 0RF ketorolac 10 mg tablet 10 mg PO Q6H PRN (Reason: pain) Qty: 14 0RF
[2022-01-25 01:08] VITALS: BP 120/63; PULSE 92; RESP 17; TEMP 36.7; O2SAT 98; BMI 31.6
--- NOTE | 2022-01-25 01:17 | DI.RAD.S_ITS ---
PROCEDURE: XR RIBS LT MIN 3V W CXR1V INDICATIONS: left rib/chest pain TECHNIQUE: Two views of the left ribs were acquired, along with a single view chest. COMPARISON: None. FINDINGS: Surgical changes and devices: None. Bones and chest wall: No displaced rib fracture identified. No suspicious bony lesions. Overlying soft tissues appear unremarkable. Lungs and pleura: No pleural effusions or pneumothorax. Lungs appear clear. Mediastinum: Mediastinal contours appear normal. Heart size is normal. IMPRESSION: 1. No displaced rib fracture identified. Dictated by: Brennan Russ M.D. on 01/25/2022 at 2:10 Approved by: Brennan Russ M.D. on 01/25/2022 at 2:11
[2022-01-25] MEDS: KETOROLAC 30 MG/ML VIAL IM (01:34)
[2022-01-25] MEDS: OXYCODONE/APAP 5/325 PREPACK 1 BOTTLE MISC (02:28)
[2022-01-25 02:37] VITALS: BP 106/60; PULSE 78; RESP 18; O2SAT 98
--- NOTE | 2022-01-26 10:37 | PC.NURSE ---
pt called explaining that [facility] would not take her insurance ()[employer]) and she was requesting her percocet to be submitted to another pharmacy. I called and spoke with the pharmacist. They are no longer a provider of her insurance. Spoke with Dr. Coyne and a new prescription was electronically sent to [facility] in [place]. I called and updated the patient.
== END 2022-01-25 02:38 | disposition home or self-care (01) ==
PROVIDERS: Emergency Provider Emergency Medicine
DX: R07.9 Chest pain, unspecified (principal); M54.6 Pain in thoracic spine
CPT/HCPCS: 71101; 93005; 93010; 96372; 99283; 99284; J1885

== ENCOUNTER 2022-01-29 06:10 | Emergency (ER) | payer OTHER, MEDICAID, SELFPAY ==
--- NOTE | 2022-01-29 06:14 | ED_ITS ---
HPI - General Adult General Chief complaint: Back Pain/Injury Stated complaint: has broken rib, cant breathe, pain Time Seen by Provider: 01/29/22 06:14 History of Present Illness HPI narrative: 41-year-old woman with history of asthma, presents with increasing chest pain on the left side. On January 25 she was seen in the emergency department after experiencing a ?giant bear hug? and feeling a ?pop? under her left breast with significant increasing pain. She does not have breast implants. Chest x-ray at the time did not show obvious abnormalities. She was given 10 tablets of oxycodone and has been using ibuprofen. [place] like she was improving until this morning when she awoke feeling that she was more swollen in her left axilla and left chest wall with significant increased pain. She initially had quite a bit of wheezing but after coughing that cleared. She comes in for further evaluation. She denies any fever, abdominal pain, vomiting or diarrhea. There is no new trauma that she reports Related Data Home Medications Medication Instructions Recorded Confirmed gabapentin 100 mg capsule 100 mg PO TID 11/15/18 12/20/18 Previous Rx's Medication Instructions Recorded albuterol sulfate 90 mcg/actuation 2 puff INHALATION Q4H PRN #1 each 12/20/18 breath activated powder inhaler ondansetron 4 mg disintegrating 4 mg PO TID-QID PRN #10 tab 12/20/18 tablet cyclobenzaprine 10 mg tablet 10 mg PO TID PRN #14 tab 01/19/19 ketorolac 10 mg tablet 10 mg PO Q6H PRN #14 tab 01/19/19 mometasone 200 mcg/actuation HFA 1 puff INHALATION BID #13 gram 01/10/20 aerosol inhaler (Asmanex HFA) ondansetron 4 mg disintegrating 4 mg PO Q8H PRN #10 tab 11/30/20 tablet oxycodone-acetaminophen 5 mg-325 1 tab PO Q6H PRN #10 tab 01/25/22 mg tablet (Percocet) oxycodone 5 mg tablet 5 mg PO Q4-6H PRN #10 tab 01/26/22 albuterol sulfate 90 mcg/actuation 2 puff INHALATION QID PRN #8.5 g 01/29/22 aerosol inhaler mometasone-formoterol HFA 100 1 puff INHALATION BID #8.8 g 01/29/22 mcg-5 mcg/actuation aerosol inhaler oxycodone 5 mg tablet 5 mg PO Q6H PRN #14 tab 01/29/22 Allergies Allergy/AdvReac Type Severity Reaction Status Date / Time nortriptyline [NORTRIPTYLINE] Allergy Unknown Verified 01/19/19 20:44 prednisone [PREDNISONE] Allergy Unknown Verified 01/19/19 20:44 Review of Systems Review of Systems Narrative: Remainder of complete review of systems is otherwise unremarkable except for that included in the HPI. Patient History Medical History Pancreatitis Surgical History Status post cholecystectomy Status post hysterectomy Social History Smoking Status: Current every day smoker Smoking Status: Current every day smoker alcohol intake frequency: holidays/special occasions only Substance Use Type: marijuana Exam Initial Vital Signs Initial Vital Signs: Vital Signs Temperature 98.6 F 01/29/22 06:16 Pulse Rate 84 01/29/22 06:16 Respiratory Rate 20 01/29/22 06:16 Blood Pressure 134/88 01/29/22 06:16 Pulse Oximetry 100 01/29/22 06:16 General: Healthy appearing, in moderate distress secondary to left chest wall pain. Able to give a complete and coherent history. Well-nourished well- developed HEENT: Moist mucous membranes, normal sclera with reactive pupils, Neck: supple, no subcutaneous air. Respiratory: Lungs are clear to auscultation, no wheezing no rales no rhonchi. Full and symmetrical air movement Chest: Fullness over the left pectoralis area extending into the left axilla and left posterior ribs without subcutaneous air tracking. Entire rib cage is tender to palpation with no point tenderness. She is able to take a deep breath Cardiac: Regular rate and rhythm no murmurs no bruits Abdomen: Soft, nontender, good bowel tones, no flank pain Skin: Warm and dry, no rashes Neurologic: Grossly neurologically intact with no obvious asymmetries or abnormalities Extremities: No trauma, well perfused Psych: Cooperative, appropriate insight and affect Course Orders Ordered: ED Orders 01/29/22 06:21 XR ribs LT min 3V w CXR1V Stat Discontinued Medications Oxycodone/Acetaminophen (Oxycodone/Acetaminophen 5/325 Tablet) 1 tab PO NOW ONE Stop: 01/29/22 06:22 Last Admin: 01/29/22 06:30 Dose: 1 tab Documented by: Vital Signs Vital signs: Vital Signs - 8 hr 01/29/22 06:16 Temperature 98.6 F Pulse Rate 84 Respiratory Rate 20 Blood Pressure 134/88 Pulse Oximetry 100 Medical Decision Making Imaging Data Chest x-ray: Radiologist's Impression: No evidence of rib fracture. Diffusely increased central interstitial lung markings associated with peribronchial cuffing. Nonspecific but commonly seen in the setting of reactive airway disease Jacklyn Varner MD [facility] Narrative Medical decision making narrative: 41-year-old woman with significant left-sided rib contusion on June 27. Appropriately using medications and awoke this morning with significant worsening in pain, required help in turning and getting out of bed. Also notes increased wheeze and is currently out of inhalers. Repeat chest x-ray does not show new findings, pneumothorax or subcutaneous air. Reassurance is given. This point I think her findings are completely consistent with significant rib contusion as well as mild asthma exacerbation likely from the splinting she has been doing because of the pain. Will have her continue with ibuprofen and oxycodone for pain control and albuterol and mometasone are refilled for her. She is safe for home discharge Discharge Plan Departure Patient Disposition: Home Clinical Impression: Contusion of rib on left side Qualifiers: Encounter type: subsequent encounter Qualified Code(s): S20.212D - Contusion of left front wall of thorax, subsequent encounter Asthma exacerbation Qualifiers: Asthma severity: mild Asthma persistence: intermittent Qualified Code(s): J45.21 - Mild intermittent asthma with (acute) exacerbation Instructions: DI for Rib Contusion Activity Restrictions/Additional Instructions: Thank you for coming in today I am sorry that you are still hurting so much. The x-rays today do not show new findings or worsening symptoms. I suspect that the splinting that you are doing because of the pain is exacerbating your asthma a bit and that was the shortness of breath and coughing that you experienced this morning. For the rib pain, using 400 mg of ibuprofen (2 bgul-ykm-dhdried pills) and 1 Tylenol every 6 hours can be very helpful in controlling pain. For severe pain you can add an oxycodone to this combination. I am also going to refill your albuterol as well as the inhaled steroid. Please use the mometasone b.i.d. and the albuterol 2 puffs as needed every 6 hours. Using your spacer with both of these will make the medicine more effective. If you have worsening symptoms or new complaints feel free to return to the emergency department Prescriptions: New oxycodone 5 mg tablet 5 mg PO Q6H PRN (Reason: pain) Qty: 14 0RF albuterol sulfate 90 mcg/actuation HFA aerosol inhaler 2 puff inhalation QID PRN (Reason: shortness of breath or wheezing) Qty: 8.5 1RF mometasone-formoterol 100-5 mcg/actuation HFA aerosol inhaler 1 puff inhalation BID Qty: 8.8 1RF No Action Asmanex HFA 200 mcg/actuation HFA aerosol inhaler 1 puff INHALATION BID Qty: 13 0RF gabapentin 100 mg capsule 100 mg PO TID 0RF Label Comments: TK ONE C PO TID ondansetron 4 mg tablet,disintegrating 4 mg PO Q8H PRN (Reason: nausea and vomiting) Qty: 10 0RF oxycodone-acetaminophen [Percocet] 5-325 mg tablet 1 tab PO Q6H PRN (Reason: pain) Qty: 10 0RF oxycodone 5 mg tablet 5 mg PO Q4-6H PRN (Reason: pain) Qty: 10 0RF ondansetron 4 mg tablet,disintegrating 4 mg PO TID-QID PRN (Reason: nausea and vomiting) Qty: 10 0RF albuterol sulfate 90 mcg/actuation aerosol powdr breath activated 2 puff INHALATION Q4H PRN (Reason: shortness of breath or wheezing) Qty: 1 0RF Rx Instructions: administer with spacer cyclobenzaprine 10 mg tablet 10 mg PO TID PRN (Reason: muscle spasm) Qty: 14 0RF ketorolac 10 mg tablet 10 mg PO Q6H PRN (Reason: pain) Qty: 14 0RF
[2022-01-29 06:16] VITALS: BP 134/88; PULSE 84; RESP 20; TEMP 37; O2SAT 100
--- NOTE | 2022-01-29 06:21 | DI.RAD.S_ITS ---
PROCEDURE: XR RIBS LT MIN 3V W CXR1V INDICATIONS: increased pain, rib trauma on 01/25 TECHNIQUE: 2 views of the left ribs were acquired, along with a single view chest. COMPARISON: [facility], CR, XR RIBS LT MIN 3V W CXR1V, 01/25/2022, 1:14. FINDINGS: Surgical changes and devices: None. Bones and chest wall: No fractures or dislocations. No suspicious bony lesions. Overlying soft tissues appear unremarkable. Lungs and pleura: No pleural effusions or pneumothorax. Lungs appear clear. Mediastinum: Mediastinal contours appear normal. Heart size is normal. IMPRESSION: No displaced rib fracture. No acute cardiopulmonary disease process. Dictated by: Ewa Lobo MD, PhD on 01/29/2022 at 7:34 Approved by: Ewa Lobo MD, PhD on 01/29/2022 at 7:38
[2022-01-29] MEDS: OXYCODONE/ACETAMINOPHEN 5/325 TABLET 1 TAB PO (06:30)
[2022-01-29 07:27] VITALS: BP 120/79; PULSE 68; RESP 16; O2SAT 97
== END 2022-01-29 07:28 | disposition home or self-care (01) ==
PROVIDERS: Emergency Provider Emergency Medicine
DX: S20.212A Contusion of left front wall of thorax, initial encounter (principal); J45.21 Mild intermittent asthma with (acute) exacerbation; F17.200 Nicotine dependence, unspecified, uncomplicated; X58.XXXA Exposure to other specified factors, initial encounter
CPT/HCPCS: 71101; 99283

== ENCOUNTER 2022-09-25 18:54 | Emergency (ER) | payer OTHER, MEDICAID, SELFPAY ==
[2022-09-25 19:05] VITALS: BP 113/67; PULSE 90; RESP 18; TEMP 36.6; O2SAT 98
--- NOTE | 2022-09-25 19:48 | ED_ITS ---
HPI - URI/Sore Throat General Chief Complaint: Upper Respiratory Symptoms Stated Complaint: COVID +, Dehydrated Time Seen by Provider: 09/25/22 19:05 Source: patient Mode of arrival: Ambulatory History of Present Illness HPI Narrative: 42-year-old female smoker with history of asthma presents to the emergency department at the request of the walk-in clinic for evaluation of upper respiratory symptoms and a recently may diagnosis of COVID. She is also had body aches, diarrhea, headache, runny nose and nasal congestion since Thursday. She denies any chest pain or shortness of breath but has had a bit of a hacking cough. She denies abdominal pain but has had frequent diarrhea. She denies urinary complaints such as dysuria, frequency or urgency. She states that her place of work is requesting a flu test Related Data Home Medications Medication Instructions Recorded Confirmed gabapentin 100 mg capsule 100 mg PO TID 11/15/18 12/20/18 Previous Rx's Medication Instructions Recorded albuterol sulfate 90 mcg/actuation 2 puff inhalation Q4H PRN 12/20/18 breath activated powder inhaler shortness of breath or wheezing #1 ea ondansetron 4 mg disintegrating 4 mg PO TID-QID PRN nausea and 12/20/18 tablet vomiting #10 tabs cyclobenzaprine 10 mg tablet 10 mg PO TID PRN muscle spasm #14 01/19/19 tabs ketorolac 10 mg tablet 10 mg PO Q6H PRN pain #14 tabs 01/19/19 mometasone 200 mcg/actuation HFA 1 puff inhalation BID #13 grams 01/10/20 aerosol inhaler (Asmanex HFA) ondansetron 4 mg disintegrating 4 mg PO Q8H PRN nausea and 11/30/20 tablet vomiting #10 tabs oxycodone-acetaminophen 5 mg-325 1 tab PO Q6H PRN pain #10 tabs 01/25/22 mg tablet (Percocet) oxycodone 5 mg tablet 5 mg PO Q4-6H PRN pain #10 tabs 01/26/22 albuterol sulfate 90 mcg/actuation 2 puff inhalation QID PRN 01/29/22 aerosol inhaler shortness of breath or wheezing #8.5 grams mometasone-formoterol HFA 100 1 puff inhalation BID #8.8 grams 01/29/22 mcg-5 mcg/actuation aerosol inhaler oxycodone 5 mg tablet 5 mg PO Q6H PRN pain #14 tabs 01/29/22 Allergies Allergy/AdvReac Type Severity Reaction Status Date / Time nortriptyline [NORTRIPTYLINE] Allergy Unknown Verified 01/19/19 20:44 prednisone [PREDNISONE] Allergy Unknown Verified 01/19/19 20:44 Review of Systems Review of Systems Narrative: GENERAL: See HPI HEENT: See HPI RESPIRATORY: See HPI CARDIOVASCULAR: Denies chest pain, palpitations, orthopnea, edema, GASTROINTESTINAL: See HPI : Denies dysuria, frequency, incontinence, hematuria, urinary retention. MUSCULOSKELETAL: denies weakness, joint pain, or bony pain SKIN: Denies rash, skin lesions, or other NEUROLOGIC: Denies weakness, headache, numbness, change in speech, confusion, seizures, incoordination. PSYCHIATRIC: No concerning psychosocial issues. 12 point review of systems is negative except for those stated above Patient History Medical History Pancreatitis Surgical History Status post cholecystectomy Status post hysterectomy Social History Smoking Status: Current every day smoker Smoking Status: Current every day smoker alcohol intake frequency: holidays/special occasions only Substance Use Type: marijuana Exam Narrative Exam Narrative: GENERAL: 42[] year old patient appears stated age. Well-developed patient, in mild distress. HEAD: Atraumatic. Normocephalic. EYES: Pupils equal round and reactive. Extraocular motions intact. No scleral icterus. No injection or drainage. ENT: Moist mucous membranes Nose without bleeding, purulent drainage. Throat without erythema, tonsillar hypertrophy or exudate. Airway patent. NECK: Trachea midline. Non tender CARDIOVASCULAR: Regular rate and rhythm without murmurs, gallops, or rubs. RESPIRATORY: Clear to auscultation. Breath sounds equal bilaterally. No wheezes, rales, or rhonchi. GASTROINTESTINAL: Abdomen soft, non-tender, nondistended. EXTREMITIES: No edema or joint tenderness. BACK: Nontender without deformity or crepitance. No flank tenderness. NEURO: AOx3. SKIN: No rash or erythema of visible areas Initial Vital Signs Initial Vital Signs: Vital Signs Temperature 98 F 09/25/22 19:05 Pulse Rate 90 09/25/22 19:05 Respiratory Rate 18 09/25/22 19:05 Blood Pressure 113/67 09/25/22 19:05 Pulse Oximetry 98 09/25/22 19:05 Oxygen Delivery Method 09/25/22 19:05 Course Orders Ordered: ED Orders 09/25/22 19:00 Covid-19 + FLU A/B + RSV - PCR Stat Vital Signs Vital signs: Vital Signs - 8 hr 09/25/22 19:05 Temperature 98 F Pulse Rate 90 Respiratory Rate 18 Blood Pressure 113/67 Pulse Oximetry 98 Oxygen Delivery Method Room Air MDM - URI/Sore Throat Lab Data Labs: Lab Results 09/25/22 Range/Units 19:00 SARS-CoV-2 (PCR) Positive H (Negative) Influenza A (RT-PCR) Flu a negative (NEGATIVE) Influenza B (RT-PCR) Flu b negative (NEGATIVE) RSV (PCR) Negative (Negative) Urine Dip Bedside Urine Glucose Negative Bedside Urine Bilirubin - Negative Bedside Urine Ketone - Negative Urine Specific [place] 1.005 Bedside Urine Occult Blood - Negative Bedside Urine pH 6.0 Bedside Urine Protein +/- 15 Bedside Urine Nitrite - Negative Bedside Urine Leukocytes - Negative Esterase MDM Narrative Medical decision making narrative: 42-year-old female smoker with history of asthma and known COVID presents for evaluation of possible dehydration and influenza. Differential Diagnoses include COVID, influenza, urinary tract infection, possible dehydration. Patient has a very reassuring history and physical exam, stable vital signs, specific gravity in the urine is evaluated and does not suggest dehydration, furthermore she does not have ketones in her urine. She has moist mucous membranes. She demonstrates no signs of respiratory distress. Discharge Plan Departure Patient Disposition: Home Clinical Impression: COVID-19 Instructions: COVID-19 Activity Restrictions/Additional Instructions: *You have been diagnosed with [ COVID-19] *What to do: ?* per recommendations from the CDC and the [facility] Department of Health ?* stay home except to get medical care. ?Restrict activities outside your home, except for getting medical care. ?Do not go to work, school, or public areas. ?Avoid using public transportation, ride sharing, or taxis. ?* separate yourself from other people in your home. ?* call ahead before visiting your doctor ?* Wear a facemask ?* Cover your coughs and sneezes ?* Clean your hands often ?* Avoid sharing household items ?* Clean all high-touch services every day ?* Monitor your symptoms and seek prompt medical attention if your illness is worsening, particularly with difficulty in breathing. You may discontinue your isolation when: ?1. You have been fever-free for at least 24 hours without the use of fever reducing medication, AND ?2. Your symptoms are getting better, AND ?3. At least 5 days have passed since symptoms first appeared ?4. If you have fever, continue to stay home until fever resolves Individuals with laboratory confirmed COVID-19 who have not had any symptoms may discontinue home isolation when at least 5 days have passed since the date of their first COVID-19 diagnostic test and have had no subsequent illness You should notifiy any friends and family that have been in close contact *If up to date on COVID Vaccines, then they do not need to quarantine unless symptoms develop. Get tested on day 5 (or sooner if symptoms develop). Take precautions and watch for symptoms until day 10 *If NOT up to date on COVID Vaccines, then CDC recommends quarantine for at least 5 full days. Wear a well fitted mask at home if you must be around others. If they ?develop symptoms they should get tested. If they remain asymptomatic they should get tested on day 5. They should take precautions and monitor for symptoms until day 10. Prescriptions: No Action Asmanex HFA 200 mcg/actuation HFA aerosol inhaler 1 puff INHALATION BID Qty: 13 0RF gabapentin 100 mg capsule 100 mg PO TID Label Comments: TK ONE C PO TID ondansetron 4 mg tablet,disintegrating 4 mg PO Q8H PRN (Reason: nausea and vomiting) Qty: 10 0RF oxycodone-acetaminophen [Percocet] 5-325 mg tablet 1 tab PO Q6H PRN (Reason: pain) Qty: 10 0RF oxycodone 5 mg tablet 5 mg PO Q4-6H PRN (Reason: pain) Qty: 10 0RF oxycodone 5 mg tablet 5 mg PO Q6H PRN (Reason: pain) Qty: 14 0RF albuterol sulfate 90 mcg/actuation HFA aerosol inhaler 2 puff inhalation QID PRN (Reason: shortness of breath or wheezing) Qty: 8.5 1RF mometasone-formoterol 100-5 mcg/actuation HFA aerosol inhaler 1 puff inhalation BID Qty: 8.8 1RF ondansetron 4 mg tablet,disintegrating 4 mg PO TID-QID PRN (Reason: nausea and vomiting) Qty: 10 0RF albuterol sulfate 90 mcg/actuation aerosol powdr breath activated 2 puff INHALATION Q4H PRN (Reason: shortness of breath or wheezing) Qty: 1 0RF Rx Instructions: administer with spacer cyclobenzaprine 10 mg tablet 10 mg PO TID PRN (Reason: muscle spasm) Qty: 14 0RF ketorolac 10 mg tablet 10 mg PO Q6H PRN (Reason: pain) Qty: 14 0RF Referrals: Miscellaneous,Doctor, MD [Primary Care Provider] - Visit Report Forms: Patient Portal/API
[2022-09-25 20:07] LABS: Influenza A - CEPHEID Flu A NEGATIVE (NEGATIVE); Influenza B - CEPHEID Flu B NEGATIVE (NEGATIVE); Respiratory Syncytial Virus Negative (Negative)
[2022-09-25 20:15] LABS: COVID-19 CEPHEID 4-PLEX PCR POSITIVE (Negative)
[2022-09-25 20:24] VITALS: BP 110/69; PULSE 79; O2SAT 100
== END 2022-09-25 20:25 | disposition home or self-care (01) ==
PROVIDERS: Emergency Provider Emergency Medicine
DX: U07.1 COVID-19 (principal)
CPT/HCPCS: 0241U; 81003; 99281; 99282

== ENCOUNTER 2023-07-28 02:22 | Emergency (ER) | payer SELFPAY ==
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
[2023-07-28 02:45] VITALS: BP 105/69; PULSE 98; RESP 19; TEMP 36.7; O2SAT 98; BMI 25.9
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
[2023-07-28] MEDS: LORazepam 0.5 MG TABLET 1 MG PO (03:07)
[2023-07-28] MEDS: KETOROLAC 30 MG/ML VIAL IM (03:07)
[2023-07-28 04:12] VITALS: BP 98/55; PULSE 70; RESP 18; O2SAT 98
== END 2023-07-28 04:14 | disposition home or self-care (01) ==
PROVIDERS: Emergency Provider Emergency Medicine
DX: M25.572 Pain in left ankle and joints of left foot (principal); M79.671 Pain in right foot; M79.672 Pain in left foot; V03.90XA Pedestrian on foot injured in collision with car, pick-up truck or van, unspecified whether traffic or nontraffic accident, initial encounter
CPT/HCPCS: 73590; 73610; 73630; 96372; 99284; J1885

== ENCOUNTER 2024-01-22 04:05 | Emergency (ER) | payer SELFPAY ==
[2024-01-22 04:09] VITALS: PULSE 94; O2SAT 100
[2024-01-22 04:10] VITALS: BP 100/71; PULSE 92; O2SAT 99
--- NOTE | 2024-01-22 04:17 | ED.ABDPAIN ---
HPI - Abdominal Pain General Chief Complaint: Abdominal Pain Stated Complaint: ABD PAIN Time Seen by Provider: 01/22/24 04:11 History of Present Illness HPI narrative: 43-year-old female with history of asthma, occasional amphetamine use presents by private vehicle from home for 5 days of gradually worsening generalized abdominal pain, worse in the left lower quadrant, and nausea. Patient states that this is caused her to have decreased p.o. intake and tonight the pain was even worse than previous and so she was started to present for evaluation. Reports cramping abdominal pain with bowel movements. Denies fevers, vomiting, bloody or tarry stools Related Data Home Medications Medication Instructions Recorded Confirmed gabapentin 100 mg capsule 100 mg PO TID 11/15/18 12/20/18 Previous Rx's Medication Instructions Recorded albuterol sulfate 90 mcg/actuation 2 puff inhalation Q4H PRN 12/20/18 breath activated powder inhaler shortness of breath or wheezing #1 ea ondansetron 4 mg disintegrating 4 mg PO TID-QID PRN nausea and 12/20/18 tablet vomiting #10 tabs cyclobenzaprine 10 mg tablet 10 mg PO TID PRN muscle spasm #14 01/19/19 tabs ketorolac 10 mg tablet 10 mg PO Q6H PRN pain #14 tabs 01/19/19 mometasone 200 mcg/actuation HFA 1 puff inhalation BID #13 grams 01/10/20 aerosol inhaler (Asmanex HFA) ondansetron 4 mg disintegrating 4 mg PO Q8H PRN nausea and 11/30/20 tablet vomiting #10 tabs oxycodone-acetaminophen 5 mg-325 1 tab PO Q6H PRN pain #10 tabs 01/25/22 mg tablet (Percocet) oxycodone 5 mg tablet 5 mg PO Q4-6H PRN pain #10 tabs 01/26/22 albuterol sulfate 90 mcg/actuation 2 puff inhalation QID PRN 01/29/22 aerosol inhaler shortness of breath or wheezing #8.5 grams mometasone-formoterol HFA 100 1 puff inhalation BID #8.8 grams 01/29/22 mcg-5 mcg/actuation aerosol inhaler oxycodone 5 mg tablet 5 mg PO Q6H PRN pain #14 tabs 01/29/22 oxycodone-acetaminophen 5 mg-325 1 tab PO QID PRN pain #7 tabs 07/28/23 mg tablet (Percocet) ondansetron 4 mg disintegrating 4 mg PO Q8H #30 tabs 01/22/24 tablet sulfamethoxazole 800 1 tab PO Q12H #20 tabs 01/22/24 mg-trimethoprim 160 mg tablet (Bactrim DS) Allergies Allergy/AdvReac Type Severity Reaction Status Date / Time sucralfate [From Carafate] Allergy Intermediate Verified 01/22/24 04:20 nortriptyline [NORTRIPTYLINE] Allergy Unknown Verified 01/19/19 20:44 prednisone [PREDNISONE] Allergy Unknown Verified 01/19/19 20:44 Review of Systems Review of Systems Narrative: Negative except as noted above Patient History Medical History Pancreatitis Surgical History Status post hysterectomy Status post cholecystectomy Social History Smoking Status: Current every day smoker Smoking Status: Current every day smoker alcohol intake frequency: holidays/special occasions only Substance Use Type: marijuana and amphetamines Exam Narrative Exam Narrative: Const: Awake, alert, no acute distress, nontoxic appearing Cardiac: regular rate, regular rhythm RESP: unlabored, clear bilaterally, no wheezing GI: Soft, generalized tenderness to deep palpation especially in left lower quadrant without rebound or guarding MSK: Atraumatic, full range of motion, pulses equal Skin: Warm, Dry, intact, no rashes Neuro: AO x3, CN II-XII grossly intact, moves all extremities Initial Vital Signs Initial Vital Signs: Vital Signs Pulse Rate 94 H 01/22/24 04:09 Pulse Oximetry 100 01/22/24 04:09 Oxygen Delivery Method Room Air 01/22/24 04:09 Course Orders Ordered: Discontinued Medications Sodium Chloride (Normal Saline 0.9%) 1,000 mls @ 1,000 mls/hr IV BOLUS ONE Stop: 01/22/24 05:15 Last Infusion: 01/22/24 05:23 Dose: Infused Documented By: Admin: 01/22/24 04:50 Dose: 1,000 mls/hr Documented By: Morphine Sulfate (Morphine 4 Mg/Ml Inj) 4 mg IV NOW ONE Stop: 01/22/24 04:17 Last Admin: 01/22/24 04:50 Dose: 4 mg Documented By: Ondansetron HCl (Ondansetron 4 Mg/2 Ml Inj) 4 mg IV NOW ONE Stop: 01/22/24 04:17 Last Admin: 01/22/24 04:50 Dose: 4 mg Documented By: Trimethoprim/Sulfamethoxazole (Trimeth/Sulfa 160/800 (Ds) Tablet) 1 tab PO NOW ONE Stop: 01/22/24 05:24 Last Admin: 01/22/24 05:28 Dose: 1 tab Documented By: AB Vital Signs Vital signs: Vital Signs - 8 hr 01/22/24 04:09 01/22/24 04:10 01/22/24 04:10 Temperature Pulse Rate 94 H 92 H Respiratory Rate Blood Pressure 100/71 Pulse Oximetry 100 99 Oxygen Delivery Method Room Air Room Air 01/22/24 04:21 01/22/24 04:38 01/22/24 04:50 Temperature 97.4 F L Pulse Rate 92 H 87 80 Respiratory Rate 16 Blood Pressure 100/71 Pulse Oximetry 99 100 100 Oxygen Delivery Method Room Air Room Air Room Air 01/22/24 04:50 Temperature Pulse Rate Respiratory Rate Blood Pressure 97/56 L Pulse Oximetry Oxygen Delivery Method MDM - Abdominal Pain Differential Diagnosis Differential diagnosis: Likely abdominal pain, acute appendicitis and calculus of kidney Lab Data 01/22/24 04:15 01/22/24 04:15 Labs: Lab Results 01/22/24 01/22/24 Range/Units 04:15 04:43 WBC 16.3 H (4.5-11.0) X10^3/uL RBC 4.10 (4.0-5.2) X10^6/uL Hgb 12.7 (12.0-16.0) g/dL Hct 37.4 (36-46) % MCV 91.2 (80-100) fL MCH 31.0 (26-34) PG MCHC 33.9 (30-36) % RDW 13.0 (11.6-14.8) % Plt Count 384 (150-400) X10^3/uL Neut % (Auto) 69.1 (50-75) % Lymph % (Auto) 20.1 L (25-40) % [place] % (Auto) 8.5 (3-14) % Eos % (Auto) 1.6 L (2-4) % Baso % (Auto) 0.7 (0-2) % Neut # (Auto) 73512 H (4140-8106) /uL Lymph # (Auto) 3300 (0465-6337) /uL [place] # (Auto) 1400 H (0-900) /uL Eos # (Auto) 300 (0-450) /uL Baso # (Auto) 100 (0-100) /uL Sodium 137 (137-145) mmol/L Potassium 3.5 (3.4-5.1) mmol/L Chloride 103 (98-107) mmol/L Carbon Dioxide 30 (22-32) mmol/L BUN 9 (7-17) mg/dL Creatinine 0.66 (0.52-1.04) mg/dL Estimated GFR > 60 (>60) mL/min BUN/Creatinine Ratio 13.6 (6-22) Glucose 110 H (70-100) mg/dL Lactate 0.8 (0.7-2.1) mmol/L Calcium 9.2 (8.4-10.2) mg/dL Total Bilirubin 0.4 (0.2-1.3) mg/dL AST 39 H (14-36) IU/L ALT 83 H (<35) IU/L Alkaline Phosphatase 145 H (38-126) U/L Total Protein 7.3 (6.3-8.2) g/dL Albumin 3.7 (3.5-5.0) g/dL Globulin 3.6 (1.7-4.1) g/dL Albumin/Globulin Ratio 1.0 (1.0-2.8) Lipase 25 (23-300) U/L Urine Color Yellow Urine Appearance Clear Urine pH 6.5 (4.5-8.0) Ur Specific [place] <=1.005 (1.000-1.035) Urine Protein Negative (Negative) Urine Glucose (UA) Negative (Negative) g/dL Urine Ketones Negative (NEGATIVE) Urine Occult Blood Trace-intact (Negative) Urine Nitrate Positive H (Negative) Urine Bilirubin Negative (NEGATIVE) Urine Urobilinogen 2.0 H (0.2) E.U./dL Ur Leukocyte Esterase 1+ H (NEGATIVE) Urine RBC None seen (0-5/HPF) Urine WBC 1-5/hpf (0-5/HPF) Ur Squamous Epith Cells 0-1 /hpf (0-5/HPF) Urine Bacteria Moderate (10-30) H (None) Ur Culture Indicated? Specimen cultured Vol Urine Centrifuged 10ml (spun) Imaging Data CT scan - abdomen/pelvis: Radiologist's Impression: PROCEDURE: CT ABDOMEN PELVIS W CON INDICATIONS: LLQ ABD PAIN TECHNIQUE: After the administration of intravenous contrast, axial sections acquired from the lung bases to the pubic symphysis. Coronal and sagittal reformats were performed. For radiation dose reduction, the following was used: automated exposure control, adjustment of mA and/or kV according to patient size. COMPARISON: [facility], CT, CT ABDOMEN PELVIS W CON, 11/29/2020, 23:23. FINDINGS: Image quality: Diagnostic Lower chest: Lung bases appear unremarkable. Liver: Possible hemangioma in the far left lobe of the liver again seen. No suspicious focal lesion on this single phase study Gallbladder and biliary system: Gallbladder is absent. No pathologic biliary ductal dilation Pancreas: No ductal dilation Spleen: Nonenlarged Adrenals: No discrete nodules Kidneys: Striated nephrogram of the left kidney. There are areas of hypoperfusion in the wedge-shaped pattern. No calcified obstructing stone is identified. Vessels and lymph nodes: The main portal vein is patent. No abdominal aortic aneurysm or pathologic lymph nodes by size criteria. Bowel and peritoneum: No evidence of small bowel obstruction. No pathologic ascites. Small amount pelvic free fluid may be physiologic. Colonic diverticula are seen. Body wall: Small fat containing umbilical hernia Pelvis: Bladder is unremarkable. Uterus is absent. Overall physiologic appearance of the adnexal structures, consider ultrasound if there is further concern Bones: No acute or suspicious osseous finding. IMPRESSION: Striated nephrogram of the left kidney is compatible with pyelonephritis. Less likely differential considerations include multifocal segmental infarcts versus multiple masses. Follow-up CT is recommended to ensure resolution. No obstructing stone is identified Other findings as above. Agree with prelim report. Dictated by: Masoud Veronica M.D. on 01/22/2024 at 7:54 Approved by: Masoud Veronica M.D. on 01/22/2024 at 7:59 MDM Narrative Medical decision making narrative: Nontoxic appearing patient presenting for worsening abdominal pains. Generalized tenderness to deep palpation without peritoneal signs. Based on patient's description of pain and duration we will get CT scan of the abdomen and pelvis. Laboratory work is reviewed, leukocytosis present with WBC count 16.5, hemoglobin normal, electrolytes normal. Liver enzymes mildly elevated with T bili 0.4, AST 39, ALT 83, alkaline phos 145. Patient was no focal tenderness in the right upper quadrant, and when informed of her liver enzymes she states that she did have a heavy alcohol binge earlier in the week. CT scan of the abdomen and pelvis shows perinephric stranding concerning for pyelonephritis. Urinalysis has nitrites, leukocyte esterase, many bacteria. Plan to treat as acute uncomplicated pyelonephritis. Patient informed of all lab and imaging findings, recommended close PCP follow up. Antibiotics sent to pharmacy of choice. Since it was before pharmacy opening hours her initial dose was provided in the emergency department prior to departure. Discharge Plan Departure Patient Disposition: Home Clinical Impression: Pyelonephritis Instructions: DI for Kidney Infection Activity Restrictions/Additional Instructions: Make sure to drink lots of water. Take all of your antibiotics as prescribed, do not stop taking antibiotics until they are finished. Please follow up with a primary care physician. Prescriptions: New sulfamethoxazole-trimethoprim [Bactrim DS] 800-160 mg tablet 1 tab PO Q12H Qty: 20 0RF ondansetron 4 mg tablet,disintegrating 4 mg PO Q8H Qty: 30 0RF No Action Asmanex HFA 200 mcg/actuation HFA aerosol inhaler 1 puff INHALATION BID Qty: 13 0RF gabapentin 100 mg capsule 100 mg PO TID Patient Comments: TK ONE C PO TID ondansetron 4 mg tablet,disintegrating 4 mg PO Q8H PRN (Reason: nausea and vomiting) Qty: 10 0RF oxycodone-acetaminophen [Percocet] 5-325 mg tablet 1 tab PO Q6H PRN (Reason: pain) Qty: 10 0RF oxycodone 5 mg tablet 5 mg PO Q4-6H PRN (Reason: pain) Qty: 10 0RF oxycodone 5 mg tablet 5 mg PO Q6H PRN (Reason: pain) Qty: 14 0RF albuterol sulfate 90 mcg/actuation HFA aerosol inhaler 2 puff inhalation QID PRN (Reason: shortness of breath or wheezing) Qty: 8.5 1RF mometasone-formoterol 100-5 mcg/actuation HFA aerosol inhaler 1 puff inhalation BID Qty: 8.8 1RF oxycodone-acetaminophen [Percocet] 5-325 mg tablet 1 tab PO QID PRN (Reason: pain) Qty: 7 0RF ondansetron 4 mg tablet,disintegrating 4 mg PO TID-QID PRN (Reason: nausea and vomiting) Qty: 10 0RF albuterol sulfate 90 mcg/actuation aerosol powdr breath activated 2 puff INHALATION Q4H PRN (Reason: shortness of breath or wheezing) Qty: 1 0RF Rx Instructions: administer with spacer cyclobenzaprine 10 mg tablet 10 mg PO TID PRN (Reason: muscle spasm) Qty: 14 0RF ketorolac 10 mg tablet 10 mg PO Q6H PRN (Reason: pain) Qty: 14 0RF Referrals: Miscellaneous,Doctor, MD [Primary Care Provider] - Stand Alone Forms: Patient Portal/API
[2024-01-22 04:21] VITALS: BP 100/71; PULSE 92; RESP 16; TEMP 36.3; O2SAT 99; BMI 23.3
[2024-01-22 04:24] LABS: Add Manual Diff / Slide Review NO; Basophils Absolute Auto 100 /uL (0-100); Basophils Percent Auto 0.7 % (0-2); Eosinophils Absolute Auto 300 /uL (0-450); Eosinophils Percent Auto 1.6 % (2-4); Hematocrit 37.4 % (36-46); Hemoglobin 12.7 g/dL (12.0-16.0); Lymphocytes Absolute Auto 3300 /uL (1100-4500); Lymphocytes Percent Auto 20.1 % (25-40); Mean Corpuscular HGB Conc 33.9 % (30-36); Mean Corpuscular Volume 91.2 fL (80-100); Monocytes Absolute Auto 1400 /uL (0-900); Monocytes Percent Auto 8.5 % (3-14); Neutrophils Absolute Auto 11200 /uL (1500-7000); Neutrophils Percent Auto 69.1 % (50-75); Platelet Count 384 X10^3/uL (150-400); White Blood Cell Count 16.3 X10^3/uL (4.5-11.0)
[2024-01-22 04:37] LABS: Lactate (Lactic Acid) 0.8 mmol/L (0.7-2.1)
[2024-01-22 04:38] VITALS: PULSE 87; O2SAT 100
[2024-01-22 04:39] LABS: Alanine Aminotransferase 83 IU/L (<35); Albumin 3.7 g/dL (3.5-5.0); Alkaline Phosphatase 145 U/L (38-126); Aspartate Aminotransferase 39 IU/L (14-36); BUN Creatinine Ratio 13.6 (6-22); Bilirubin Total 0.4 mg/dL (0.2-1.3); Blood Urea Nitrogen 9 mg/dL (7-17); Calcium 9.2 mg/dL (8.4-10.2); Carbon Dioxide 30 mmol/L (22-32); Chloride 103 mmol/L (98-107); Estimated Glomerular Filt Rate > 60 mL/min (>60); Globulin 3.6 g/dL (1.7-4.1); Glucose 110 mg/dL (70-100); HEMOLYSIS < 15 (0-50); Lipase 25 U/L (23-300); Potassium 3.5 mmol/L (3.4-5.1); Sodium 137 mmol/L (137-145); Total Protein 7.3 g/dL (6.3-8.2)
[2024-01-22 04:50] VITALS: BP 97/56; PULSE 80; O2SAT 100
[2024-01-22] MEDS: SODIUM CHLORIDE 0.9% 1,000 ML 1000 ML IV (04:50)
[2024-01-22] MEDS: MORPHINE 4 MG/ML INJ IV (04:50)
[2024-01-22] MEDS: ONDANSETRON 4 MG/2 ML INJ IV (04:50)
[2024-01-22 05:00] VITALS: BP 101/58; PULSE 77; O2SAT 98
[2024-01-22 05:05] LABS: Appearance Urine UA CLEAR; Bilirubin Urine UA NEGATIVE (NEGATIVE); Color Urine UA YELLOW; Glucose Urine UA NEGATIVE (Negative); Ketones Urine UA NEGATIVE (NEGATIVE); Leukocyte Esterase Urine UA 1+ (NEGATIVE); Nitrite Urine UA POSITIVE (Negative); Occult Blood Urine UA TRACE-INTACT (Negative); Protein Urine UA NEGATIVE (Negative); Specific Gravity Urine UA <=1.005 (1.000-1.035)
[2024-01-22 05:06] LABS: pH Urine UA 6.5 (4.5-8.0)
[2024-01-22 05:19] LABS: Bacteria Urine Moderate (10-30); Culture Indicated Urine Specimen Cultured; RBC Urine None Seen (0-5/HPF); Squamous Epithelial Cell Urine 0-1 /HPF (0-5/HPF); Urine Volume 10mL (spun); WBC Urine 1-5/HPF (0-5/HPF)
[2024-01-22] MEDS: TRIMETH/SULFA 160/800 (DS) TABLET 1 TAB PO (05:28)
== END 2024-01-22 05:36 | disposition home or self-care (01) ==
PROVIDERS: Emergency Provider Emergency Medicine
DX: N12 Tubulo-interstitial nephritis, not specified as acute or chronic (principal); R10.84 Generalized abdominal pain; Z79.899 Other long term (current) drug therapy
CPT/HCPCS: 36415; 74177; 80053; 81001; 83605; 83690; 85025; 87077; 87086; 87186; 96361; 96374; 96375; 99284; J2270; J2405; Q9967